=== PATIENT | female | born 1980 | race African-American/Black ===

== ENCOUNTER 2017-11-04 10:28 | Emergency (ER) | payer SELFPAY ==
[2017-11-04] MEDS ORDERED: ONDANSETRON 4 MG/2 ML VIAL ONE (11:33)
[2017-11-04 11:37] LABS: Urine Blood NEGATIVE (NEG); Urine Glucose NEGATIVE (NEG); Urine Protein NEGATIVE (NEG); Urine Specific Gravity 1.025 (1.005-1.030); Urine pH 6.5 (5.0-7.0)
[2017-11-04 11:58] LABS: Absolute Lymphocytes (CBC) 1.3 K/uL (0.7-4.9); Absolute Monocytes 0.4 K/uL (0.1-1.3); Absolute Neutrophil 2.6 K/uL (1.8-8.0); Basophils % 1.1 % (0-1.3); Eosinophils % 2.2 % (0-4.4); Hematocrit 37.1 % (36.0-45.0); Lymphocytes % 29.2 % (15.3-44.8); MCH 29.1 pg (27.0-35.0); MCV 89.3 fL (80-100); Monocytes % 9.8 % (3.3-12.3); RBC Red Blood Cell Count 4.15 M/uL (3.86-4.86)
[2017-11-04 12:11] LABS: Bicarbonate 30 mEq/L (21-31); Glucose Level 97 mg/dL (65-120); Lipase 15 U/L (22-51); Potassium 3.9 mEq/L (3.6-5.0); Sodium Level 139 mEq/L (135-145)
[2017-11-04 12:17] LABS: ALT/SGPT 11 IU/L (10-60); AST/SGOT 14 IU/L (10-42); Albumin 3.6 g/dL (3.2-5.5); Alkaline Phosphatase 44 IU/L (42-121); BUN Blood Urea Nitrogen 8 mg/dL (6-20); Bilirubin Direct 0.1 mg/dL (0-0.2); Bilirubin Total 0.6 mg/dL (0.3-1.2); Protein, Total 6.9 g/dL (6.0-8.3)
--- NOTE | 2017-11-04 12:24 | ER ---
Nurse's Notes [facility] Name: Nikki Anne Age: 37 yrs Sex: Female : 1980 Arrival Date: 11/04/2017 Time: 10:30 Bed 19 Private MD: Rishabh Mooney R Diagnosis: Vomiting;Diarrhea, unspecified Presentation: 11/04 10:30 Presenting complaint: Patient states: Headaches with nausea that started 2 weeks ago, aj along with leg pain. Patient reports nausea as well. Ambulated to triage with steady gait. Patient drove herself to ER. Reports taking Aspirin once time 6 days ago for pain, unrelieved. Transition of care: patient was not received from another setting of care. Onset of symptoms was October 20, 2017. Initial Sepsis Screen: Does the patient meet any 2 criteria? No. Patient's initial sepsis screen is negative. Does the patient have a suspected source of infection? No. Patient's initial sepsis screen is negative. Care prior to arrival: None. 10:30 Method Of Arrival: Ambulatory 10:30 Acuity: LUZ MARINA 3 Triage Assessment: 10:30 Headache History: The patient has had previous headaches and this one is similar to aj previous episodes. General: Appears in no apparent distress. comfortable, Behavior is calm, cooperative, appropriate for age. Pain: Complains of pain in face, right leg and left leg Pain currently is 7 out of 10 on a pain scale. Pain began 2 weeks ago Also complains of nausea. Neuro: Level of Consciousness is awake, alert, obeys commands, Oriented to person, place, time, situation, Appropriate for age Moves all extremities. Full function Gait is steady, Speech is normal, Facial symmetry appears normal. Respiratory: Airway is patent Respiratory effort is even, unlabored, Respiratory pattern is regular, symmetrical. GI: Reports nausea. Derm: Skin is intact, is healthy with good turgor, Skin is pink, warm \T\ dry. normal. 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 - Social history:: Smoking status: Patient uses tobacco products, smokes one-half pack cigarettes per day. Screenin:50 Abuse screen: Denies threats or abuse. Denies injuries from another. Nutritional aj1 screening: No deficits noted. Tuberculosis screening: No symptoms or risk factors identified. 12:38 Fall Risk None identified. aj1 Assessment: 10:50 General: Appears in no apparent distress. uncomfortable, Behavior is calm, cooperative, aj1 appropriate for age. Pain: Complains of pain in forehead, occipital area and right side of neck Pain does not radiate. Pain currently is 7 out of 10 on a pain scale. Quality of pain is described as throbbing, Pain began 2 weeks ago Is intermittent, Alleviated by rubbing head Aggravated by lights. 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 Full function Gait is steady, Speech is normal, Facial symmetry appears normal, Pupils are PERRLA, Intact Reports blurred vision headache photophobia. Cardiovascular: Patient's skin is warm and dry. Respiratory: Airway is patent Respiratory effort is even, unlabored, Respiratory pattern is regular, symmetrical. GI: No signs and/or symptoms were reported involving the gastrointestinal system. : No signs and/or symptoms were reported regarding the genitourinary system. EENT: No signs and/or symptoms were reported regarding the EENT system. Derm: No signs and/or symptoms reported regarding the dermatologic system. Skin is pink, warm \T\ dry. normal. Musculoskeletal: No signs and/or symptoms reported regarding the musculoskeletal system. Circulation, motion, and sensation intact. 11:56 Reassessment: Patient appears in no apparent distress at this time. No changes from aj1 previously documented assessment. Patient and/or family updated on plan of care and expected duration. Pain level reassessed. Patient is alert, oriented x 3, equal unlabored respirations, skin warm/dry/pink. 12:38 Reassessment: Patient appears in no apparent distress at this time. No changes from aj1 previously documented assessment. Patient and/or family updated on plan of care and expected duration. Pain level reassessed. Patient is alert, oriented x 3, equal unlabored respirations, skin warm/dry/pink. Vital Signs: 10:30 BP 135 / 67; Pulse 69; Resp 17; Temp 97.1; Pulse Ox 100% on R/A; Weight 127.01 kg; aj Height 5 ft. 6 in. (167.64 cm); Pain 7/10; 11:50 BP 126 / 76; Pulse 62; Resp 18; Pulse Ox 99% ; aj1 12:38 BP 117 / 56; Pulse 69; Resp 18; Pulse Ox 99% ; aj1 10:30 Body Mass Index 45.19 (127.01 kg, 167.64 cm) ED Course: 10:30 Patient arrived in ED. as 10:30 Rishabh Mooney MD is Private Physician. as 10:30 Arm band placed on left wrist. Patient placed in an exam room. aj 10:32 Triage completed. aj 10:38 Chilango Worrell MD is Attending Physician. gs 10:38 Norma Mejia, RN is Primary Nurse. aj1 10:50 Patient has correct armband on for positive identification. Placed in gown. Bed in low aj1 position. Call light in reach. Side rails up X 1. 10:50 No provider procedures requiring assistance completed. aj1 11:08 Urine --Ancillary (enter results) Sent. mh5 11:08 Urine Dipstick--Ancillary (enter results) Sent. mh5 11:29 Missed attempt(s): 22 gauge in right antecubital area. 5 11:30 Urine collected: clean catch specimen, clear. 5 11:52 Initial lab(s) drawn, by ca, sent to lab. Inserted saline lock: 22 gauge in right aj1 antecubital area, using aseptic technique. Blood collected. 12:38 IV discontinued, intact, bleeding controlled, No redness/swelling at site. Pressure aj1 dressing applied. Administered Medications: 11:52 Drug: Zofran 4 mg Route: IVP; Site: right antecubital; aj1 12:40 Follow up: Response: No adverse reaction aj1 Outcome: 12:24 Discharge ordered by . 12:39 Discharged to home ambulatory. aj1 12:39 Condition: good 12:39 Discharge instructions given to patient, Instructed on discharge instructions, follow up and referral plans. medication usage, Demonstrated understanding of instructions, follow-up care, medications, Prescriptions given X 1. 12:41 Patient left the ED. aj1 Signatures: Norma Mejia RN RN aj1 ScruggsMaria T RN RN aj Martinez, Amelia as Martinez, Maria mh5 Chilango Worrell MD MD Corrections: (The following items were deleted from the chart) 10:33 10:30 Acuity: LUZ MARINA 4 neto duque
--- NOTE | 2017-11-04 12:25 | EDPHYS ---
Physician Documentation [facility] Name: Nikki Anne Age: 37 yrs Sex: Female : 1980 Arrival Date: 11/04/2017 Time: 10:30 Bed 19 Private MD: Rishabh Mooney R ED Physician Chilango Worrell HPI: 11/04 12:21 This 37 yrs old Black Female presents to ER via Ambulatory with complaints of gs Nausea/Vomiting. 12:21 The patient presents to the emergency department with nausea, vomiting, diarrhea. gs Onset: The symptoms/episode began/occurred 3 day(s) ago. Possible causes: unknown. The symptoms are aggravated by nothing. The symptoms are alleviated by nothing. Associated signs and symptoms: Pertinent negatives: abdominal pain, fever, GI bleeding. Severity of symptoms: At their worst the symptoms were moderate in the emergency department the symptoms have improved moderately. The patient has experienced similar episodes in the past, a few times. . 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 - Social history:: Smoking status: Patient uses tobacco products, smokes one-half pack cigarettes per day. ROS: 12:21 Neuro: Positive for headache, headache gradual onset throbbing typical of past gs headaches. 12:21 All other systems are negative. Exam: 12:21 Head/Face: Normocephalic, atraumatic. Eyes: Pupils equal round and reactive to light, gs extra-ocular motions intact. Lids and lashes normal. Conjunctiva and sclera are non-icteric and not injected. Cornea within normal limits. Periorbital areas with no swelling, redness, or edema. ENT: Nares patent. No nasal discharge, no septal abnormalities noted. Tympanic membranes are normal and external auditory canals are clear. Oropharynx with no redness, swelling, or masses, exudates, or evidence of obstruction, uvula midline. Mucous membranes moist. Neck: Trachea midline, no thyromegaly or masses palpated, and no cervical lymphadenopathy. Supple, full range of motion without nuchal rigidity, or vertebral point tenderness. No Meningismus. Chest/axilla: Normal chest wall appearance and motion. Nontender with no deformity. No lesions are appreciated. Cardiovascular: Regular rate and rhythm with a normal S1 and S2. No gallops, murmurs, or rubs. Normal PMI, no JVD. No pulse deficits. Respiratory: Lungs have equal breath sounds bilaterally, clear to auscultation and percussion. No rales, rhonchi or wheezes noted. No increased work of breathing, no retractions or nasal flaring. Abdomen/GI: Soft, non-tender, with normal bowel sounds. No distension or tympany. No guarding or rebound. No evidence of tenderness throughout. Back: No spinal tenderness. No costovertebral tenderness. Full range of motion. Skin: Warm, dry with normal turgor. Normal color with no rashes, no lesions, and no evidence of cellulitis. MS/ Extremity: Pulses equal, no cyanosis. Neurovascular intact. Full, normal range of motion. Neuro: Awake and alert, GCS 15, oriented to person, place, time, and situation. Cranial nerves II-XII grossly intact. Motor strength 5/5 in all extremities. Sensory grossly intact. Cerebellar exam normal. Normal gait. 12:21 Constitutional: The patient appears alert, awake. Vital Signs: 10:30 BP 135 / 67; Pulse 69; Resp 17; Temp 97.1; Pulse Ox 100% on R/A; Weight 127.01 kg; aj Height 5 ft. 6 in. (167.64 cm); Pain 7/10; 11:50 BP 126 / 76; Pulse 62; Resp 18; Pulse Ox 99% ; aj1 12:38 BP 117 / 56; Pulse 69; Resp 18; Pulse Ox 99% ; aj1 10:30 Body Mass Index 45.19 (127.01 kg, 167.64 cm) aj MDM: 11:03 Patient medically screened. 12:21 Differential diagnosis: Nonspecific abd pain, viral gastroenteritis, gastroenteritis. Data reviewed: vital signs, nurses notes. Response to treatment: the patient's symptoms have markedly improved after treatment, and as a result, I will discharge patient. 11/04 11:06 Order name: Urine Dipstick--Ancillary (enter results); Complete Time: 12:15 mw2 11/04 11:06 Order name: Urine --Ancillary (enter results); Complete Time: 12:15 mw2 11/04 11:07 Order name: Basic Metabolic Panel; Complete Time: 12:20 11/04 11:07 Order name: CBC with Diff; Complete Time: 12:15 11/04 11:07 Order name: Hepatic Function; Complete Time: 12:20 11/04 11:07 Order name: Lipase; Complete Time: 12:20 11/04 11:07 Order name: IV Saline Lock; Complete Time: 11:52 11/04 11:07 Order name: Labs collected and sent; Complete Time: 11:52 Administered Medications: 11:52 Drug: Zofran 4 mg Route: IVP; Site: right antecubital; aj1 12:40 Follow up: Response: No adverse reaction aj1 Disposition: 11/04/17 12:24 Discharged to Home. Impression: Vomiting, Diarrhea, unspecified. - Condition is Stable. - Discharge Instructions: Diarrhea, Nausea and Vomiting. - Prescriptions for Zofran 4 mg Oral Tablet - take 1 tablet by ORAL route every 12 hours As needed; 10 tablet. - Medication Reconciliation Form, Thank You Letter, Antibiotic Education, Prescription Opioid Use form. - Follow up: Emergency Department; When: 2 - 3 days; Reason: Re-evaluation by your physician. Signatures: Dispatcher [employer] Norma Merrill, RN RN Maria T Malin RN RN Chilango Park MD MD
[2017-11-04 12:58] VITALS: TEMP 97.1
[2017-11-04 13:00] VITALS: O2SAT 99
[2017-11-04 13:01] VITALS: BP 117/56
== END 2017-11-04 12:41 | disposition home or self-care (01) ==
LOC: ER 10:28
DX: R19.7 Diarrhea, unspecified (principal); F17.210 Nicotine dependence, cigarettes, uncomplicated
CPT/HCPCS: 36415; 80048; 80076; 81003; 81025; 83690; 85025; 96374; 99284; J2405

== ENCOUNTER 2017-12-03 11:48 | Emergency (ER) | payer SELFPAY ==
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
[2017-12-03] MEDS ORDERED: KETOROLAC 30 MG/ML INJ ONE (13:05)
[2017-12-03 13:24] LABS: Urine Blood NEGATIVE (NEG); Urine Glucose NEGATIVE (NEG); Urine Protein NEGATIVE (NEG); Urine pH 7.5 (5.0-7.0)
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
[2017-12-03 14:32] VITALS: TEMP 98.2
[2017-12-03 14:34] VITALS: BP 125/66; O2SAT 97
== END 2017-12-03 14:21 | disposition home or self-care (01) ==
LOC: ER 11:48
DX: M54.2 Cervicalgia (principal); V43.52XA Car driver injured in collision with other type car in traffic accident, initial encounter
CPT/HCPCS: 70450; 71045; 72125; 81003; 81025; 96372; 99285

== ENCOUNTER 2018-05-25 14:26 | Emergency (ER) | payer SELFPAY ==
--- NOTE | 2018-05-25 15:36 | ER ---
Nurse's Notes [facility] Name: Nikki Anne Age: 37 yrs Sex: Female : 1980 Arrival Date: 05/25/2018 Time: 14:30 Bed 18 Private MD: Rishabh Mooney R Diagnosis: Chronic pain syndrome Presentation: 05/25 14:52 Presenting complaint: Patient states: "I have fibromyalgia and I haven't been able to aj go to the doctor because I just started a new job. I have pain all over my body.". Transition of care: patient was not received from another setting of care. Onset of symptoms was May 12, 2018. Risk Assessment: Do you want to hurt yourself or someone else? Patient reports no desire to harm self or others. Initial Sepsis Screen: Does the patient meet any 2 criteria? No. Patient's initial sepsis screen is negative. Does the patient have a suspected source of infection? No. Patient's initial sepsis screen is negative. Care prior to arrival: None. 14:52 Method Of Arrival: Ambulatory 14:52 Acuity: LUZ MARINA 5 Triage Assessment: 14:55 General: Appears in no apparent distress. comfortable, Behavior is calm, cooperative, aj appropriate for age. Pain: Complains of pain in entire body. Neuro: Level of Consciousness is awake, alert, obeys commands, Oriented to person, place, time, situation, Appropriate for age. Respiratory: Airway is patent Respiratory effort is even, unlabored, Respiratory pattern is regular, symmetrical. Derm: Skin is intact, is healthy with good turgor, Skin is pink, warm \\T\\ dry. normal. Musculoskeletal: Reports pain in body aches. 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 - Social history:: Smoking status: Patient/guardian denies using tobacco. - Ebola Screening: : Patient negative for fever greater than or equal to 101.5 degrees Fahrenheit, and additional compatible Ebola Virus Disease symptoms Patient denies exposure to infectious person Patient denies travel to an Ebola-affected area in the 21 days before illness onset No symptoms or risks identified at this time. Screenin:30 Abuse screen: Denies threats or abuse. Denies injuries from another. Nutritional jl7 screening: No deficits noted. Tuberculosis screening: No symptoms or risk factors identified. Fall Risk None identified. Assessment: 15:30 General: Appears in no apparent distress. uncomfortable, obese, Behavior is calm, jl7 cooperative. Pain: Complains of pain in all over Pain currently is 5 out of 10 on a pain scale. Quality of pain is described as tingling, Pain began years ago. Is continuous. Neuro: Level of Consciousness is awake, alert, obeys commands. Cardiovascular: Patient's skin is warm and dry. Respiratory: Airway is patent Respiratory effort is even, unlabored, Respiratory pattern is regular, symmetrical. Derm: Skin is pink, warm \\T\\ dry. Vital Signs: 14:55 BP 119 / 50; Pulse 85; Resp 19; Temp 99.5; Pulse Ox 100% on R/A; Weight 131.54 kg; aj Height 5 ft. 5 in. (165.10 cm); 14:55 Body Mass Index 48.26 (131.54 kg, 165.10 cm) aj ED Course: 14:30 Patient arrived in ED. mr 14:30 Rishabh Mooney MD is Private Physician. mr 14:53 Triage completed. aj 14:55 Arm band placed on left wrist. Patient placed in waiting room, Patient notified of wait aj time. 15:18 [facility] Thornton [facility]C [facility]. snw 15:18 Jules Puente MD is Attending Physician. snw 15:30 Patient has correct armband on for positive identification. Placed in gown. Bed in low jl7 position. Call light in reach. Side rails up X 1. Pulse ox on. NIBP on. 15:34 Rishabh Mooney MD is Referral Physician. snw 15:47 Joan Nicholson RN is Primary Nurse. jl7 16:07 No provider procedures requiring assistance completed. Patient did not have IV access jl7 during this emergency room visit. Administered Medications: 15:45 Drug: Gabapentin 300 mg Route: PO; jl7 Outcome: 15:35 Discharge ordered by . snw 16:07 Discharged to home ambulatory. jl7 16:07 Condition: stable 16:07 Discharge instructions given to patient, Instructed on discharge instructions, follow up and referral plans. medication usage, Demonstrated understanding of instructions, follow-up care, medications. 16:08 Patient left the ED. jl7 Signatures: Maria T Scruggs, RN RN Dea Mane, [employer]AND [employer]BASSADORS PROMOTIONAL SALES-C [employer]OM[employer] SAL[employer]-Csnw Helena Allen NicholsonJoan RN RN jl7 Corrections: (The following items were deleted from the chart) 14:55 14:54 General: Appears in no apparent distress. comfortable, neto duque
--- NOTE | 2018-05-25 15:37 | EDPHYS ---
Physician Documentation [facility] Name: Nikki Anne Age: 37 yrs Sex: Female : 1980 Arrival Date: 05/25/2018 Time: 14:30 Bed 18 Private MD: Rishabh Mooney R ED Physician Jules Puente HPI: 05/25 20:05 This 37 yrs old Black Female presents to ER via Ambulatory with complaints of Pain All snw Over. 20:05 Onset: The symptoms/episode began/occurred acutely. Associated signs and symptoms: The snw patient has no apparent associated signs or symptoms. Modifying factors: The patient symptoms are alleviated by nothing. The patient has experienced similar episodes in the past. The patient has not recently seen a physician. hx of fibromyalgia. 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 - Social history:: Smoking status: Patient/guardian denies using tobacco. - Ebola Screening: : Patient negative for fever greater than or equal to 101.5 degrees Fahrenheit, and additional compatible Ebola Virus Disease symptoms Patient denies exposure to infectious person Patient denies travel to an Ebola-affected area in the 21 days before illness onset No symptoms or risks identified at this time. ROS: 20:04 Constitutional: Negative for fever, chills, and weight loss, Eyes: Negative for injury, snw pain, redness, and discharge, ENT: Negative for injury, pain, and discharge, Neck: Negative for injury, pain, and swelling, Cardiovascular: Negative for chest pain, palpitations, and edema, Respiratory: Negative for shortness of breath, cough, wheezing, and pleuritic chest pain, Abdomen/GI: Negative for abdominal pain, nausea, vomiting, diarrhea, and constipation, Back: Negative for injury and pain, : Negative for injury, bleeding, discharge, and swelling, Skin: Negative for injury, rash, and discoloration, Neuro: Negative for headache, weakness, numbness, tingling, and seizure. 20:04 MS/extremity: Positive for pain, of the burning pain all over. Exam: 20:04 Constitutional: This is a well developed, well nourished patient who is awake, alert, snw and in no acute distress. Head/Face: Normocephalic, atraumatic. Eyes: Pupils equal round and reactive to light, extra-ocular motions intact. Lids and lashes normal. Conjunctiva and sclera are non-icteric and not injected. Cornea within normal limits. Periorbital areas with no swelling, redness, or edema. ENT: Nares patent. No nasal discharge, no septal abnormalities noted. Tympanic membranes are normal and external auditory canals are clear. Oropharynx with no redness, swelling, or masses, exudates, or evidence of obstruction, uvula midline. Mucous membranes moist. Neck: Trachea midline, no thyromegaly or masses palpated, and no cervical lymphadenopathy. Supple, full range of motion without nuchal rigidity, or vertebral point tenderness. No Meningismus. Chest/axilla: Normal chest wall appearance and motion. Nontender with no deformity. No lesions are appreciated. Cardiovascular: Regular rate and rhythm with a normal S1 and S2. No gallops, murmurs, or rubs. Normal PMI, no JVD. No pulse deficits. Respiratory: Lungs have equal breath sounds bilaterally, clear to auscultation and percussion. No rales, rhonchi or wheezes noted. No increased work of breathing, no retractions or nasal flaring. Abdomen/GI: Soft, non-tender, with normal bowel sounds. No distension or tympany. No guarding or rebound. No evidence of tenderness throughout. Back: No spinal tenderness. No costovertebral tenderness. Full range of motion. Skin: Warm, dry with normal turgor. Normal color with no rashes, no lesions, and no evidence of cellulitis. MS/ Extremity: Pulses equal, no cyanosis. Neurovascular intact. Full, normal range of motion. Neuro: Awake and alert, GCS 15, oriented to person, place, time, and situation. Cranial nerves II-XII grossly intact. Motor strength 5/5 in all extremities. Sensory grossly intact. Cerebellar exam normal. Normal gait. Vital Signs: 14:55 BP 119 / 50; Pulse 85; Resp 19; Temp 99.5; Pulse Ox 100% on R/A; Weight 131.54 kg; aj Height 5 ft. 5 in. (165.10 cm); 14:55 Body Mass Index 48.26 (131.54 kg, 165.10 cm) neto MDM: 15:18 Patient medically screened. snw 20:05 Data reviewed: vital signs, nurses notes. Data interpreted: Pulse oximetry: on room air snw is 100 %. Interpretation: normal. Counseling: I had a detailed discussion with the patient and/or guardian regarding: the historical points, exam findings, and any diagnostic results supporting the discharge/admit diagnosis, the need for outpatient follow up, to return to the emergency department if symptoms worsen or persist or if there are any questions or concerns that arise at home. Special discussion: Based on the history and exam findings, there is no indication for further emergent testing or inpatient evaluation. I discussed with the patient/guardian the need to see the primary care provider for further evaluation of the symptoms. Administered Medications: 15:45 Drug: Gabapentin 300 mg Route: PO; jl7 Disposition: 05/26 13:51 Co-signature as Attending Physician, Jules Puente MD I agree with the assessment and kdr plan of care. Disposition: 05/25/18 15:35 Discharged to Home. Impression: Chronic pain syndrome. - Condition is Stable. - Discharge Instructions: Chronic Pain, Pain Medicine Instructions, Acupuncture. - Prescriptions for gabapentin 300 mg Oral capsule - take 1 capsule by ORAL route 3 times per day; 60 capsule. - Medication Reconciliation Form, Thank You Letter, Antibiotic Education, Prescription Opioid Use, Work release form form. - Follow up: Rishabh Mooney MD; When: 1 week; Reason: Recheck today's complaints, Continuance of care, Re-evaluation by your physician. Follow up: Emergency Department; When: As needed; Reason: Worsening of condition. Signatures: Maria T Scruggs, IGNACIA RN Jules Veloz MD MD kdr Therrien, Shelly, THREAD PULLER-C THREAD PULLER-Csnw Joan Nicholson RN RN jl7 Corrections: (The following items were deleted from the chart) 05/25 16:08 15:35 05/25/2018 15:35 Discharged to Home. Impression: Chronic pain syndrome. Condition jl7 is Stable. Forms are Medication Reconciliation Form, Thank You Letter, Antibiotic Education, Prescription Opioid Use. Follow up: Rishabh Mooney; When: 1 week; Reason: Recheck today's complaints, Continuance of care, Re-evaluation by your physician. Follow up: Emergency Department; When: As needed; Reason: Worsening of condition. snw
[2018-05-25] MEDS ORDERED: GABAPENTIN 300 MG CAP ONE (15:58)
[2018-05-25 17:04] VITALS: BP 119/50; TEMP 99.5; O2SAT 100
== END 2018-05-25 16:08 | disposition home or self-care (01) ==
LOC: ER 14:26
DX: G89.4 Chronic pain syndrome (principal)
CPT/HCPCS: 99283